=== PATIENT | male | born 1960 | race Hispanic/Latino ===

== ENCOUNTER 2024-11-07 06:50 | Day surgery (SDC) | payer MEDICARE ==
[2024-11-07] VITALS (10 sets, daily range): BP systolic 128–190; BP diastolic 41–91; PULSE 55–63; RESP 14–17; TEMP 97.2–97.9
[~2024-11-07] VITALS: Ht 167.6 cm; Wt 77.6 kg
[~2024-11-07 06:50] MED LIST: 0.9%NACL 1000ML 0 ML IV ONE
[2024-11-07] MEDS ORDERED: SEVE0.8P PO (08:54)
[2024-11-07] MEDS ORDERED: AZAT50TA17 PO (08:54)
[2024-11-07] MEDS ORDERED: FOLI0.8C PO (08:54)
[2024-11-07] MEDS ORDERED: LEVE750T66 PO (08:54)
[2024-11-07] MEDS ORDERED: ATOR40TA69 PO (08:54)
[2024-11-07] MEDS ORDERED: PYRIDOSTIGMINE PO (08:54)
[2024-11-07] MEDS ORDERED: SERT-438 PO (08:54)
[2024-11-07] MEDS ORDERED: ASPI-1005 PO (08:54)
[2024-11-07] MEDS ORDERED: ISOS60TA77 PO (08:54)
[2024-11-07] MEDS ORDERED: PANT40TA54 PO (08:54)
[2024-11-07] MEDS ORDERED: MAGN100C5 PO (08:54)
[2024-11-07] MEDS ORDERED: NIFE-40 PO (08:54)
[2024-11-07] MEDS ORDERED: CYAN250010 PO (08:54)
[2024-11-07] MEDS ORDERED: FOLI0.8T22 PO (08:54)
[2024-11-07] MEDS ORDERED: HYDR50TA37 PO (08:54)
[2024-11-07] MEDS: 0.9% NACL 500ML IV.SOLN 500 ML IV ONE (09:14)
[2024-11-07] MEDS ORDERED: LIDOCAINE PF 100MG/5ML (2%) SYRINGE 5ML ONE (09:37)
[2024-11-07] MEDS ORDERED: proPOFol 10 MG/ML 20ML VIAL IV ONE (09:37)
== END 2024-11-07 10:50 | disposition home or self-care (01) ==
LOC: ENDO 06:50 → DAH 06:50 → ENDO 10:50
PROVIDERS: ATTEND Internal Medicine Gastroenterology
DX: R10.9 Unspecified abdominal pain (principal); K74.60 Unspecified cirrhosis of liver; R93.3 Abnormal findings on diagnostic imaging of other parts of digestive tract; D50.9 Iron deficiency anemia, unspecified; K64.9 Unspecified hemorrhoids; K29.70 Gastritis, unspecified, without bleeding; K44.9 Diaphragmatic hernia without obstruction or gangrene; F41.9 Anxiety disorder, unspecified; E78.5 Hyperlipidemia, unspecified; I85.10 Secondary esophageal varices without bleeding; I12.0 Hypertensive chronic kidney disease with stage 5 chronic kidney disease or end stage renal disease; D63.1 Anemia in chronic kidney disease; E11.22 Type 2 diabetes mellitus with diabetic chronic kidney disease; N18.6 End stage renal disease; Z79.4 Long term (current) use of insulin; Z79.899 Other long term (current) drug therapy
CPT/HCPCS: 43239; 00731; 82948 ×2; J7040; J2003; J2704; A4620; A4215 ×2; A4223; A4222; A4221; A4663; A4606; J7030; J3490